=== PATIENT | female | born 1965 | race Caucasian/White ===

== ENCOUNTER 2017-07-18 10:15 | Day surgery (SDC) | payer BC ==
[2017-07-18 10:43] VITALS: RESP 16; TEMP 97
[2017-07-18] MEDS: LACTATED RINGERS 1,000 ML IV SCH ×2 (10:58→11:27)
[2017-07-18] MEDS ORDERED: LIDOCAINE 1% 20 ML VIAL (10MG/ML) FOR IV START INTRADERMA ONE (10:58)
[2017-07-18] MEDS ORDERED: PROPOFOL 10 MG/ML 20 ML VIAL IV ONE (11:32)
[2017-07-18] MEDS ORDERED: LIDOCAINE 1% INJ 10MG/ML (20 ML MDV) ONE (11:32)
--- NOTE | 2017-07-18 12:04 | P.PCN ---
Date of Procedure: 07/18/17 Procedure(s) Performed: Brief history: Patient is a pleasant 51-year-old white female, scheduled for an elective upper endoscopy as well as colonoscopy as a part of evaluation of heartburn, epigastric pain and screening for colonic neoplasia Procedure performed: Esophagogastroduodenoscopy with biopsy Colonoscopy Preoperative diagnosis: GERD Screening for colon cancer Anesthesia: MAC Procedure: After informed consent was obtained from the patient was brought into the endoscopy unit and IV sedation was administered by anesthesia under continuous monitoring. Initially upper endoscopy was done. The Olympus GF 160 video endoscope was inserted inserted into the mouth and esophagus intubated without any difficulty and was gradually advanced into the stomach and duodenum and carefully examined. The bulb and second part of the duodenum appeared normal. The scope was then withdrawn into the stomach adequately insufflated with air and upon careful examination the antrum appeared normal. In the proximal body of the stomach there were small gastric polyps identified which were biopsied. The rest of the body, cardia and fundus appeared normal. The scope was then withdrawn into the esophagus. small sliding-type hiatal hernia noted. The GE junction was located at 40 cm to the incisors. It appeared regular with no erythema erosions or ulcerations. Rest of the esophagus appeared normal. Patient tolerated the procedure well. At this time the patient continued to remain sedation. Initial digital rectal examination was normal. Olympus CF 160 video colonoscope was then inserted into the rectum and gradually advanced to the cecum without any difficulty. Careful examination was performed as the scope was gradually being withdrawn. The prep was excellent. The cecum, ascending colon, transverse colon, descending colon, sigmoid colon and rectum appeared normal. Retroflexion was performed in the rectum and no lesions were noted. Patient tolerated the procedure well. Impression: 1. Upper endoscopy revealed small gastric polyps in the proximal body of the stomach and a sliding type hiatal hernia 2. Colonoscopy revealed scattered sigmoid diverticulosis, but no evidence of colitis or colorectal neoplasia Recommendations: Findings of this examination were discussed with the patient as well as her family. She was advised to follow with the biopsy results. She can have a repeat colonoscopy in 10 years. In regards to the upper GI symptoms which are more suggestive of gastro esophageal reflux she was advised to start on Prilosec 20 mg daily and follow antireflux measures
[2017-07-18 12:35] VITALS: BP 132/81; PULSE 52
== END 2017-07-18 12:53 | disposition home or self-care (01) ==
LOC: ORWHC2ENDO 10:15
PROVIDERS: ATTEND Internal Medicine Gastroenterology
DX: Z12.11 Encounter for screening for malignant neoplasm of colon (principal); K29.50 Unspecified chronic gastritis without bleeding; K31.7 Polyp of stomach and duodenum; K44.9 Diaphragmatic hernia without obstruction or gangrene; K21.9 Gastro-esophageal reflux disease without esophagitis; K57.30 Diverticulosis of large intestine without perforation or abscess without bleeding; I10 Essential (primary) hypertension; J45.909 Unspecified asthma, uncomplicated; E07.9 Disorder of thyroid, unspecified; Z79.899 Other long term (current) drug therapy; Z79.891 Long term (current) use of opiate analgesic
CPT/HCPCS: 81025; 88305; 43239; J2001; J2704; G0121

== ENCOUNTER → 2020-01-18 | Outpatient (CLI) | payer BC ==
--- NOTE | 2020-01-24 11:04 | MM ---
Reason for exam: screening (asymptomatic). Last mammogram was performed 1 year and 5 months ago. History: Patient is postmenopausal. Took hormonal contraceptives for 7 years. Physical Findings: A clinical breast exam by your physician is recommended on an annual basis and results should be correlated with mammographic findings. MG 3D Screening Mammo W/Cad Bilateral CC and MLO view(s) were taken. Prior study comparison: August 17, 2018, mammogram, performed at [facility]. April 01, 2017, mammogram, performed at [facility]. The breast tissue is almost entirely fat. No significant changes when compared with prior studies. ASSESSMENT: Benign, BI-RAD 2 RECOMMENDATION: Routine screening mammogram of both breasts in 1 year.
== END | disposition home or self-care (01) ==
LOC: RADMAMWWP 09:15
PROVIDERS: ATTEND Family Medicine
DX: Z12.31 Encounter for screening mammogram for malignant neoplasm of breast (principal)
CPT/HCPCS: 77063; 77067

== ENCOUNTER → 2021-05-31 | Outpatient (CLI) | payer BC ==
--- NOTE | 2021-06-01 11:06 | MM ---
Reason for exam: screening (asymptomatic). Last mammogram was performed 1 year and 4 months ago. History: Patient is postmenopausal. Took hormonal contraceptives for 7 years. Physical Findings: A clinical breast exam by your physician is recommended on an annual basis and results should be correlated with mammographic findings. MG Screening Mammo w CAD Bilateral CC and MLO view(s) were taken. Prior study comparison: January 18, 2020, bilateral MG 3d screening mammo w/cad. August 17, 2018, mammogram, performed at [facility]. There are scattered fibroglandular densities. Finding #1: There is a 10 mm indistinct oval mass located 6 cm from the nipple in the middle, central position of the left breast. Finding #2: There are dystrophic calcifications in the right breast. There is a chronic nodularity in the right breast. New finding since January 18, 2020 and August 17, 2018. ASSESSMENT: Incomplete: need additional imaging evaluation, BI-RAD 0 RECOMMENDATION: Special view mammogram and ultrasound of the left breast. [facility] will attempt to contact patient to return for supplemental views and ultrasound.
== END | disposition home or self-care (01) ==
LOC: RADMAMWWP 14:57
PROVIDERS: ATTEND Obstetrics & Gynecology
DX: Z12.31 Encounter for screening mammogram for malignant neoplasm of breast (principal); Z78.0 Asymptomatic menopausal state
CPT/HCPCS: 77067

== ENCOUNTER → 2021-06-05 | Outpatient (CLI) | payer BC ==
--- NOTE | 2021-06-05 09:46 | MM ---
Reason for exam: additional evaluation requested from abnormal screening. Last mammogram was performed less than 1 month ago. History: Patient is postmenopausal. Took hormonal contraceptives for 7 years. Physical Findings: Nurse did not find any significant physical abnormalities on exam. MG Work Up Mamm w CAD LT Spot compression CC, spot compression MLO, and ML view(s) were taken of the left breast. Prior study comparison: May 31, 2021, bilateral MG screening mammo w CAD. January 18, 2020, bilateral MG 3d screening mammo w/cad. The breast tissue is almost entirely fat. No significant new findings when compared with previous films. These results were verbally communicated with the patient and result sheet given to the patient on 06/05/21. ASSESSMENT: Incomplete: need additional imaging evaluation, BI-RAD 0 RECOMMENDATION: Ultrasound of the left breast.
--- NOTE | 2021-06-05 09:53 | USB ---
Reason for exam: additional evaluation requested from abnormal screening. History: Patient is postmenopausal. Took hormonal contraceptives for 7 years. US Breast Workup Limited LT Left limited breast ultrasound including focal area of concern, retroareolar and axilla demonstrates no cystic or solid lesion seen. Scanned 10-2 o'clock. These results were verbally communicated with the patient and result sheet given to the patient on 06/05/21. ASSESSMENT: Suspicious, BI-RAD 4 RECOMMENDATION: Stereotactic core biopsy of the left breast. Called Dr. Monroe's office with mammographic findings and has scheduled an appointment for the patient for 08/01/21 at 4:[address] Martinez. Biopsy scheduled for 07/09/21 at 7:00. PRELIMINARY REPORT CALLED AND FAXED TO DR. MARTINEZ ON 06/05/21.
== END | disposition home or self-care (01) ==
LOC: RADMAMWWP 07:33
PROVIDERS: ATTEND Obstetrics & Gynecology
DX: R92.8 Other abnormal and inconclusive findings on diagnostic imaging of breast (principal); Z78.0 Asymptomatic menopausal state
CPT/HCPCS: 77065

== ENCOUNTER → 2021-07-09 | Day surgery (SDC) | payer BC ==
[2021-07-09 07:34] VITALS: RESP 12
[2021-07-09 08:43] VITALS: BP 129/85; PULSE 76; TEMP 98.7
--- NOTE | 2021-07-09 09:46 | MM ---
EXAMINATION TYPE: MG stereo VAD BX LT DATE OF EXAM: 07/09/2021 COMPARISON: Prior mammograms June 05, 2021 and older mammograms. CLINICAL HISTORY: Abnormal mammogram. TECHNIQUE: Stereotactic guided core biopsy of left breast. FINDINGS: The procedure of stereotactic guided core biopsy was explained to the patient. Benefits, alternatives, and risks were discussed. An informed consent was then obtained. Due to central location, approach was similar from all 4 directions. A cranial approach was chosen as lesion was best seen on CC spotting. I performed the localization, then performed the remainder of the procedure. A vacuum assisted biopsy gun was used to obtain multiple core samples. The patient tolerated the procedure well without any immediate complication. The patient was kept in the radiology department for short stay after the procedure and then discharged home in stable condition. Post biopsy mammogram shows the clip to appear in satisfactory position relative to the targeted area of concern on the preprocedure images. Small postbiopsy hematoma near the site is present on images saved. IMPRESSION: SUCCESSFUL, UNCOMPLICATED STEREOTACTIC GUIDED CORE BIOPSY OF AREA OF CONCERN IN THE LEFT BREAST, FULL PATHOLOGY RESULTS TO FOLLOW. Intermediate index of suspicion noted at time of procedure. Pathology Results: Benign LEFT BREAST, CORE BIOPSY: Benign fibroadipose tissue with focal fibrocystic change having apocrine metaplasia and rare suggestive possible microcalcifications seen (see note). Current specimen negative for diagnostic in situ or invasive carcinoma. Recommendation Follow up mammogram of the left breast in 6 months. MTDD
== END ==
LOC: RADMAMWWP 07:14
PROVIDERS: ATTEND Surgery
DX: R92.8 Other abnormal and inconclusive findings on diagnostic imaging of breast (principal); N60.12 Diffuse cystic mastopathy of left breast; N60.82 Other benign mammary dysplasias of left breast
CPT/HCPCS: 88305; 19081; A4648; J2001

== ENCOUNTER → 2022-01-07 | Outpatient (CLI) | payer BC ==
--- NOTE | 2022-01-07 11:22 | MM ---
Reason for Exam: Follow-up at short interval from prior study. Last screening mammogram was performed 7 month(s) ago. Patient History: Menarche at age 13. First Full-Term at age 25. Postmenopausal. Patient used Hormonal Contraceptives for 7 years. 07/09/2021, Benign Core Biopsy on the left side. Risk Values: Elaine 5 year model risk: 1.6%. NCI Lifetime model risk: 10.4%. Prior Study Comparison: 04/26/2003 Bilateral Screening Mammogram, [facility]. 04/01/2017 Screening Mammogram, [facility]. 08/17/2018 Screening Mammogram, [facility]. 01/18/2020 Bilateral Screening Mammogram, [facility]. 05/31/2021 Bilateral Screening Mammogram, [facility]. 06/05/2021 Left Diagnostic Mammogram, [facility]. 06/05/2021 Left Diagnostic Ultrasound, [facility]. Tissue Density: Left: The breast tissue is almost entirely fat. Findings: Analyzed By CAD. Left breast biopsy clip is evident. No persistent suspicious nodularity is evident. No suspicious spiculated or lobular masses, cluster microcalcifications, architectural distortion, or other secondary signs of density are radiographically apparent. Overall Assessment: Benign, BI-RAD 2 Management: Screening Mammogram of both breasts in 6 months. A clinical breast exam by your physician is recommended on an annual basis and results should be correlated with mammographic findings. This exam should not preclude additional follow-up of suspicious palpable abnormalities. Results were given to the patient verbally at the time of exam. Electronically signed and approved by: Miguelangel Dickson D.O. Radiologis
== END | disposition home or self-care (01) ==
LOC: RADMAMWWP 10:51
PROVIDERS: ATTEND Surgery
DX: R92.8 Other abnormal and inconclusive findings on diagnostic imaging of breast (principal); Z78.0 Asymptomatic menopausal state
CPT/HCPCS: 77061; 77065

== ENCOUNTER → 2022-07-08 | Outpatient (CLI) | payer BC ==
--- NOTE | 2022-07-09 20:27 | MM ---
Reason for Exam: Screening (asymptomatic). Last mammogram was performed 1 year(s) and 1 month(s) ago. Patient History: Menarche at age 13. First Full-Term at age 25. Postmenopausal. Patient used Hormonal Contraceptives for 7 years. 07/09/2021, Benign Core Biopsy on the left side. Risk Values: Elaine 5 year model risk: 1.6%. NCI Lifetime model risk: 10.4%. Prior Study Comparison: 05/31/2021 Bilateral Screening Mammogram, [facility]. 06/05/2021 Left Diagnostic Mammogram, [facility]. 01/07/2022 Left MG 3D diag mammo w/cad LT, [facility]. Tissue Density: There are scattered fibroglandular densities. Findings: Analyzed By CAD. Microclip left breast on prior biopsy. Unchanged oil cyst calcification right breast. There is no suspicious group of microcalcifications or new suspicious mass in either breast. Overall Assessment: Benign, BI-RAD 2 Management: Screening Mammogram of both breasts in 1 year. 1. Patient should continue monthly self breast exams. 2. A clinical breast exam by your physician is recommended on an annual basis. 3. This exam should not preclude additional follow-up of suspicious palpable abnormalities. Electronically signed and approved by: Alyson De Leon M.D. Radiologist
== END | disposition home or self-care (01) ==
LOC: RADMAMWWP 13:27
PROVIDERS: ATTEND Surgery
DX: Z12.31 Encounter for screening mammogram for malignant neoplasm of breast (principal); Z78.0 Asymptomatic menopausal state
CPT/HCPCS: 77063; 77067

== ENCOUNTER → 2022-11-28 | Outpatient (CLI) | payer BC ==
--- NOTE | 2022-11-28 10:23 | BD ---
EXAMINATION TYPE: Axial Bone Density DATE OF EXAM: 11/28/2022 CLINICAL HISTORY: 57 year old Female. ICD-10 CODE: Z78.0 Post menopausal w/o HRT, N95.1 post menopau stefany Height: 65 Weight: 179 FRAX RISK QUESTIONS: Alcohol (3 or more units per day): no Family History (Parent hip fracture): no Glucocorticoids (More than 3mos): no (Ex: prednisone, prednisolone, methylprednisolone, dexamethasone, and hydrocortisone). History of Fracture in Adulthood: no Secondary Osteoporosis: 1. Type 1 Diabetes: no 2. Hyperthyroidism: no 3. Menopause before 45: no 4. Malnutrition: no 5. Chronic liver disease: no Rheumatoid Arthritis: no Current Tobacco Use: no RISK FACTORS HISTORY OF: History of Wrist Fracture: right arm When: as a child Surgery to Spine/Hip(right/left)/Wrist (right/left): no Family History of Osteoporosis: no Active: yes Diet low in dairy products/other sources of calcium: yes Postmenopausal woman: yes Lost more than 2 inches in height since high school: no MEDICATIONS: Thyroid Medications: levothyroxine How Lon years Additional History: EXAM MEASUREMENTS: Bone mineral densitometry was performed using the [employer] System. Bone mineral density as measured about the Lumbar spine is: ----- L1-L4(G/cm2): 1.112 T Score Values are as follows: ----- L1: -1.5 ----- L2: -0.3 ----- L3: -0.3 ----- L4: -0.5 ----- L1-L4: -0.6 Z Score Values are as follows: ----- L1: -1.1 ----- L2: 0.2 ----- L3: 0.1 ----- L4: -0.1 ----- L1-L4: -0.1 Bone mineral density : baseline Bone mineral density about the R hip (g/cm2): 0.955 Bone mineral density about the L hip (g/cm2): 0.972 T Score values are as follows: -----R Neck: -1.0 -----L Neck: -0.7 -----R Total: -0.4 -----L Total: -0.3 Z Score values are as follows: -----R Neck: -0.3 -----L Neck: 0.0 -----R Total: 0.0 -----L Total: 0.1 Bone mineral density : baseline FRAX%s: The graph provided illustrates a 6.2% chance for a major osteoporotic fx and a 0.3 % chance f or the hips probability for fx in 10 years time. IMPRESSION: Normal (Values between +1 and -1 indicate normal bone mass). Consider repeating this study in 5 year s or sooner if there is some new clinical indication. NOTE: T-SCORE=SD OF THE YOUNG ADULT MEAN.
== END | disposition home or self-care (01) ==
LOC: RADBDWWP 08:59
PROVIDERS: ATTEND Obstetrics & Gynecology
DX: Z78.0 Asymptomatic menopausal state (principal)
CPT/HCPCS: 77080

== ENCOUNTER → 2023-08-04 | Outpatient (CLI) | payer BC ==
--- NOTE | 2023-08-05 22:13 | MM ---
Reason for Exam: Screening (asymptomatic). Last mammogram was performed 1 year(s) and 1 month(s) ago. Patient History: Menarche at age 13. First Full-Term at age 25. Postmenopausal. Patient has history of breast feeding. Patient used Hormonal Contraceptives for 7 years. 07/09/2021, Benign Core Biopsy on the left side. Risk Values: Elaine 5 year model risk: 1.7%. NCI Lifetime model risk: 10.2%. Prior Study Comparison: 04/01/2017 Screening Mammogram, [facility]. 08/17/2018 Screening Mammogram, [facility]. 01/18/2020 Bilateral Screening Mammogram, [facility]. 05/31/2021 Bilateral Screening Mammogram, [facility]. 06/05/2021 Left Diagnostic Mammogram, [facility]. 01/07/2022 Left MG 3D diag mammo w/cad LT, [facility]. 07/08/2022 Bilateral MG 3D screening mammo w/cad, [facility]. Tissue Density: There are scattered fibroglandular densities. Findings: Analyzed By CAD. Microclip left breast from prior biopsy. Additional chronic nodularity on the left. There is no suspicious group of microcalcifications or new suspicious mass in either breast. Overall Assessment: Benign, BI-RAD 2 Management: Screening Mammogram of both breasts in 1 year. . Patient should continue monthly self-breast exams. A clinical breast exam by your physician is recommended on an annual basis. This exam should not preclude additional follow-up of suspicious palpable abnormalities. Note on Elaine scores and lifetime risk: 1. A Elaine score greater than 3% is considered moderate risk. If this is the case, consider specialist referral to assess eligibility for a risk reducing agent. 2. If overall lifetime risk for the development of breast cancer is 20% or higher, the patient may qualify for future screening with alternating mammogram and breast MRI. Electronically signed and approved by: Alyson De Leon M.D. Radiologist
== END | disposition home or self-care (01) ==
LOC: RADMAMWWP 09:44
PROVIDERS: ATTEND Obstetrics & Gynecology
DX: Z12.31 Encounter for screening mammogram for malignant neoplasm of breast (principal); Z78.0 Asymptomatic menopausal state
CPT/HCPCS: 77063; 77067

== ENCOUNTER → 2023-08-22 | Outpatient (CLI) | payer BC ==
[2023-08-25 13:52] LABS: Alt. alternata IgE Class CLASS 0; Alternaria alternata IgE <0.10 kU/L (<0.10); Asperg. fumagatus IgE <0.10 kU/L (<0.10); Asperg. fumagatus IgE Class CLASS 0; Bermuda Grass IgE 0.33 kU/L (<0.10); Birch(Com.Silvr) IgE <0.10 kU/L (<0.10); Birch(Com.Silvr) IgE Class CLASS 0; Cat Epith & Dander IgE 0.25 kU/L (<0.10); Cat Epith & Dander IgE Class CLASS 0/1; Clad herbarum IgE <0.10 kU/L (<0.10); Clad herbarum IgE Class CLASS 0; Cockroach IgE <0.10 kU/L (<0.10); Cottonwood IgE <0.10 kU/L (<0.10); Dermato. Pteronyssinus Class CLASS 3; Dermato. Pteronyssinus IgE 5.67 kU/L (<0.10); Dermato. farinae IgE 4.58 kU/L (<0.10); Dermato. farinae IgE Class CLASS 3; Dog Dander IgE 0.53 kU/L (<0.10); Elm IgE <0.10 kU/L (<0.10); IgE (Allergen) 57.9 IU/mL (<114.0); Maple (Box Elder) IgE <0.10 kU/L (<0.10); Maple (Box Elder) IgE Class CLASS 0; Mountain Cedar IgE <0.10 kU/L (<0.10); Mountain Cedar IgE Class CLASS 0; Mouse Urine IgE Class CLASS 0; Mouse Urine Proteins,IgE <0.10 kU/L (<0.10); Nettle IgE <0.10 kU/L (<0.10); Nettle IgE Class CLASS 0; Oak IgE <0.10 kU/L (<0.10); Penicillium chrysogenum IgE <0.10 kU/L (<0.10); Penicillium chrysogenum IgE Cl CLASS 0; Rough Marshelder IgE <0.10 kU/L (<0.10); Rough Marshelder IgE Class CLASS 0; Timothy Grass IgE Class CLASS 2; White Ash IgE Class CLASS 0
== END | disposition home or self-care (01) ==
LOC: LABWHC1 15:32
PROVIDERS: ATTEND Internal Medicine Critical Care Medicine
DX: J45.40 Moderate persistent asthma, uncomplicated (principal)
CPT/HCPCS: 36415; 82785; 85008; 86003

== ENCOUNTER → 2024-08-31 | Outpatient (CLI) | payer BC ==
--- NOTE | 2024-09-01 07:57 | MM ---
Reason for Exam: Screening (asymptomatic). Last mammogram was performed 1 year(s) and 1 month(s) ago. Patient History: Menarche at age 13. First Full-Term at age 25. Postmenopausal. Patient has history of breast feeding. Patient used Hormonal Contraceptives for 7 years. 07/09/2021, Benign Core Biopsy on the left side. Risk Values: Elaine 5 year model risk: 1.8%. NCI Lifetime model risk: 10.0%. Prior Study Comparison: 01/07/2022 Left MG 3D diag mammo w/cad , [facility]. 07/08/2022 Bilateral MG 3D screening mammo w/cad, [facility]. 08/04/2023 Bilateral MG 3D screening mammo w/cad, [facility]. Tissue Density: There are scattered areas of fibroglandular density. Findings: Analyzed By CAD. Mammotome biopsy clip in the left breast is redemonstrated. There is no suspicious group of microcalcifications or new suspicious mass in either breast. Overall Assessment: Benign, BI-RAD 2 Management: Screening Mammogram of both breasts in 1 year. . Patient should continue monthly self-breast exams. A clinical breast exam by your physician is recommended on an annual basis. This exam should not preclude additional follow-up of suspicious palpable abnormalities. Note on Elaine scores and lifetime risk: 1. A Elaine score greater than 3% is considered moderate risk. If this is the case, consider specialist referral to assess eligibility for a risk reducing agent. 2. If overall lifetime risk for the development of breast cancer is 20% or higher, the patient may qualify for future screening with alternating mammogram and breast MRI. [facility], , 09/01/2024 7:54 AM. Electronically signed and approved by: Zachary Ramachandran M.D.
== END | disposition home or self-care (01) ==
LOC: RADMAMWWP 16:23
PROVIDERS: ATTEND Obstetrics & Gynecology
DX: Z12.31 Encounter for screening mammogram for malignant neoplasm of breast (principal); R92.323 Mammographic fibroglandular density, bilateral breasts; Z78.0 Asymptomatic menopausal state; Z92.0 Personal history of contraception
CPT/HCPCS: 77063; 77067

== ENCOUNTER → 2025-01-03 | Outpatient (CLI) | payer BC | END | disposition home or self-care (01) | LOC: LABWHC1 09:56 | PROVIDERS: ATTEND Internal Medicine Critical Care Medicine | DX: J45.40 Moderate persistent asthma, uncomplicated (principal) | CPT/HCPCS: 36415; 82785; 85008 ==